=== PATIENT | female | born 1955 | race Caucasian/White ===

== ENCOUNTER 2018-12-20 08:30 | Day surgery (SDC) | payer OTHER ==
[2018-12-20] MEDS ORDERED: PROPOFOL 20 ML ×2 (09:30→10:23)
[2018-12-20] MEDS ORDERED: FENTAnyl 50 MCG/ML VIAL (09:30)
[2018-12-20] MEDS ORDERED: ONDANSETRON 4 MG INJ IV (09:30)
[2018-12-20] MEDS ORDERED: LIDOCAINE 2% JELLY 5 ML (09:31)
== END 2018-12-20 12:12 | disposition home or self-care (01) ==
LOC: GIL 08:30
DX: Z12.11 Encounter for screening for malignant neoplasm of colon (principal); K64.8 Other hemorrhoids; K29.30 Chronic superficial gastritis without bleeding
CPT/HCPCS: 43239; 88305